=== PATIENT | male | born 1935 | race Two or more races ===

== ENCOUNTER 2022-07-22 15:19 | Emergency (ER) | payer OTHER ==
[2022-07-22 15:48] VITALS: RESP 16; BMI 22.6
[2022-07-22 16:45] VITALS: BP 122/63; PULSE 60; TEMP 98.6
[2022-07-22] MEDS ORDERED: ACETAMINOPHEN 1000 MG/100 ML BAG IVPB ONE (16:57)
[2022-07-22] MEDS ORDERED: ACETAMINOPHEN INJECTION 100 ML IVPB ONE (17:33)
[2022-07-22] MEDS ORDERED: ASPIRIN 81 MG CHEWABLE TABLETS PO ONE (17:47)
[2022-07-22 17:58] LABS: BASO % 0.8 % (0-2.0); EOS % 2.2 % (0-4.5); HEMATOCRIT 39.6 % (35.4-49); HEMOGLOBIN 13.3 GM/dL (11.7-16.9); LYMPH % 32.7 % (8-40); MCH 31.4 pg (25.7-33.7); MCHC 33.6 g/dl (32.0-35.9); MEAN CELL VOLUME 93.4 fl (80-96); MEAN PLT VOLUME 7.3 fl (7.5-11.1); MONO % 6.9 % (3.8-10.2); NEUT % 57.4 % (42.8-82.8); PLATELET COUNT 237 10^3/uL (134-434); RBC 4.24 M/mm3 (4.00-5.60); RDW 13.9 % (11.9-15.9); WHITE BLOOD COUNT 4.5 K/mm3 (4.0-10.0)
[2022-07-22 18:10] LABS: INR 1.03 (0.83-1.09); PROTHROMBIN TIME (PATIENT) 11.9 SEC (9.7-13.0)
[2022-07-22 18:12] LABS: ACTIVATED PTT 30.7 SECONDS (25.2-36.5)
[2022-07-22 18:14] LABS: POTASSIUM 4.7 mmol/L (3.5-5.1)
[2022-07-22 18:16] LABS: CALCIUM 8.6 mg/dL (8.5-10.1)
[2022-07-22 18:17] LABS: ALBUMIN 3.3 g/dl (3.4-5.0)
[2022-07-22 18:20] LABS: CREATININE 1.1 mg/dL (0.55-1.3)
[2022-07-22 18:21] LABS: BILIRUBIN,TOTAL 0.7 mg/dL (0.2-1); TOT PROT 6.7 g/dl (6.4-8.2)
[2022-07-22 18:25] LABS: N-TERMINAL BNP 287.2 pg/ml (5-450)
[2022-07-22] MEDS ORDERED: ASPIRIN 81 MG CHEWABLE TABLETS ONE (18:32)
== END 2022-07-22 19:34 | disposition left against medical advice (07) ==
LOC: JER 15:19
PROC: 3E033NZ Introduction of Analgesics, Hypnotics, Sedatives into Peripheral Vein, Percutaneous Approach (ICD-10-PCS; principal; 2022-07-22)
PROC: 3E033GC Introduction of Other Therapeutic Substance into Peripheral Vein, Percutaneous Approach (ICD-10-PCS; 2022-07-22)
DX: R21 Rash and other nonspecific skin eruption (principal); R07.9 Chest pain, unspecified; R06.02 Shortness of breath; R00.1 Bradycardia, unspecified; Z20.822 Contact with and (suspected) exposure to COVID-19
CPT/HCPCS: 0241U-QW; 36415; 71045-TC-FY; 80053; 83690; 83735; 83880; 84484; 85025; 85610; 85730; 93005; 93010; 99285-25